=== PATIENT | female | born 1965 | race Caucasian/White ===

== ENCOUNTER 2017-06-27 02:36 | Emergency (ER) | payer BC ==
[2017-06-27] MEDS ORDERED: Ondansetron INJ* 2 MG/ML VIAL IV ONE ×2 (02:52→04:25)
[2017-06-27] MEDS ORDERED: NS 0.9% 1000 ML* 1,000 ML IV ONE (02:52)
[2017-06-27] MEDS ORDERED: Morphine INJ* 4 MG/ML 1 ML SYRINGE IV ONE (02:52)
[2017-06-27 03:35] LABS: Hematocrit 39 % (35-47); Hemoglobin 13.5 g/dl (12.0-16.0); Mean Corpuscular HGB Conc 34 g/dl (31-36); Mean Corpuscular Hemoglobin 32 pg (27-31); Mean Corpuscular Volume 93 fL (80-97); Mean Platelet Volume 7 um3 (7.4-10.4); Red Blood Count 4.25 10^6/ul (4.0-5.4); Red Cell Distribution Width 14 % (10.5-15); White Blood Count 10.8 10^3/ul (3.5-10.8)
[2017-06-27 03:51] LABS: Albumin 4.2 g/dL (3.2-5.2); BUN/Creatinine Ratio 24.4 (8-20); C Reactive Protein 68.83 mg/L (< 5.00); Calcium 9.4 mg/dL (8.6-10.3); EGFR African American 85.2 (>60); EGFR Non-African American 66.3 (>60); Globulin 2.8 g/dL (2-4); Magnesium 2.4 mg/dL (1.9-2.7); Total Bilirubin 0.6 mg/dL (0.2-1.0)
--- NOTE | 2017-06-27 04:03 | ED ---
Nico Mendieta Rebecca, scribed for Ebenezer Epps MD on 06/27/17 at 0256 . Abdominal Pain/Female - HPI Summary HPI Summary: Pt is a 52 y/o F who presents to ED c/o diffuse abd pain. Sx began about 2 days ago, worsening last night. Pain is currently moderate, ranked 7/10 and was treated with Vicodin at 0230 and Phenergan without change. PMHx IBS and colitis with current sx being similar to prior aggravations. Pt reports that sometimes, the bouts of pain will resolve themselves and other times, such as now, they do not. Has a doctor in [place] that she sees for these sx. - History of Current Complaint Chief Complaint: EDAbdPain Stated Complaint: ABD PAIN Time Seen by Provider: 06/27/17 02:46 Hx Obtained From: Patient Onset/Duration: Lasting Days - 3 days, Still Present, Worse Since - last night Severity Currently: Moderate Pain Intensity: 7 Pain Scale Used: 0-10 Numeric Location: Diffuse Aggravating Factor(s): Nothing Alleviating Factor(s): Nothing Associated Signs and Symptoms: Negative: Fever Simlar Episode/Dx as:: IBS/colitis flareups Allergies/Adverse Reactions: Allergies Allergy/AdvReac Type Severity Reaction Status Date / Time No Known Allergies Allergy Verified 06/27/17 02:38 PMH/Surg Hx/FS Hx/Imm Hx Endocrine/Hematology History: Denies: Hx Diabetes Cardiovascular History: Denies: Hx Coronary Artery Disease, Hx Hypertension GI History: Reports: Hx Irritable Bowel, Other GI Disorders - Hx colitis Infectious Disease History: No Infectious Disease History: Denies: Traveled Outside the [place] in Last 30 Days - Family History Known Family History: Positive: Cardiac Disease, Other - [place] - Social History Lives: With Family Substance Use Type: Reports: None Smoking Status (MU): Never Smoked Tobacco Review of Systems Negative: Fever Positive: Abdominal Pain All Other Systems Reviewed And Are Negative: Yes Physical Exam Triage Information Reviewed: Yes Vital Signs On Initial Exam: Initial Vitals Temp Pulse Resp BP Pulse Ox 97.8 F 89 18 132/57 97 06/27/17 02:39 06/27/17 02:39 06/27/17 02:39 06/27/17 02:39 06/27/17 02:39 Vital Signs Reviewed: Yes Appearance: Positive: Well-Appearing, Pain Distress - mild discomfort Skin: Positive: Warm Head/Face: Positive: Normal Head/Face Inspection Eyes: Positive: MARY ANN ENT: Positive: Hearing grossly normal Neck: Positive: Supple Respiratory/Lung Sounds: Positive: Breath Sounds Present Cardiovascular: Positive: RRR Abdomen Description: Positive: Soft, Other: - mild diffuse abd tenderness. Negative: Distended, Guarding Bowel Sounds: Positive: Present Neurological: Positive: Alert, Oriented to Person Place, Time Psychiatric: Positive: Affect/Mood Appropriate Diagnostics - Vital Signs Vital Signs Temp Pulse Resp BP Pulse Ox 06/27/17 02:39 97.8 F 89 18 132/57 97 - Laboratory Result Diagrams: 06/27/17 03:15 06/27/17 03:15 Lab Statement: Any lab studies that have been ordered have been reviewed, and results considered in the medical decision making process. Re-Evaluation - Re-Evaluation First Eval Re-Evaluation Time: 05:45 Change: Improved Comment: Discussed results and plan to D/C. pt refusing ct scan, states will f/ u with pcp Abdominal Pain Fem Course/Dx - Course Course Of Treatment: Pt is a 52 y/o F who presents to ED c/o diffuse abd pain. Sx began about 2 days ago, worsening last night. Pain is currently moderate, ranked 7/10 and was treated with Vicodin at 0230 and Phenergan without change. PMHx IBS and colitis with current sx being similar to prior aggravations. Pt reports that sometimes, the bouts of pain will resolve themselves and other times, such as now, they do not. Has a doctor in [place] that she sees for these sx. Pt refused CT Abd/Pel. UA negative for UTI. In the ED course pt wa administered morphine zofran and fluids. Pt will be D/C to home with Dx of abdominal pain and follow up with her PCP. She understands and agrees. Elevated BP noted and advised to f/u. - Diagnoses Provider Diagnoses: Abdominal pain Discharge - Discharge Plan Condition: Stable Disposition: HOME Patient Education Materials: Acute Abdominal Pain (ED) Referrals: [facility] [Outside] The documentation as recorded by the Nico gustafson Rebecca accurately reflects the service I personally performed and the decisions made by me, Ebenezer Epps MD.
[2017-06-27 05:35] LABS: Urine Bilirubin Negative (Negative); Urine Glucose Negative (Negative); Urine Nitrite Negative (Negative)
[2017-06-27 06:00] VITALS: BP 108/67
== END 2017-06-27 05:58 | disposition home or self-care (01) ==
LOC: ED 02:36
DX: R10.9 Unspecified abdominal pain (principal)
CPT/HCPCS: 36415; 80053; 81003; 83605; 83690; 83735; 85025; 86140; 96374; 96375; 99283; J2270; J2405